=== PATIENT | female | born 1985 | race Caucasian/White ===

== ENCOUNTER 2022-07-29 19:58 | Emergency (ER) | payer BC ==
[~2022-07-29] VITALS: Ht 170.2 cm; Wt 81.6 kg
[2022-07-29 20:38] VITALS: BP 132/84
[2022-07-29] MEDS ORDERED: KETOROLAC TROMETHAMINE INJ 30 MG/ML VIAL ONE (21:20)
[2022-07-29] MEDS ORDERED: CYCLOBENZAPRINE 10 MG TABLET ONE (21:20)
[2022-07-29] MEDS ORDERED: KETOROLAC TROMETHAMINE INJ 60 MG/2 ML VIAL IM ONE (21:30)
[2022-07-29] MEDS ORDERED: CYCLOBENZAPRINE 10 MG TABLET PO ONE (21:30)
[2022-07-29] MEDS ORDERED: CYCL5TAB PO (21:38)
[2022-07-29] MEDS ORDERED: NAPR-1164 PO (21:38)
[2022-07-29] MEDS ORDERED: LIDO30AD10 TP (21:38)
== END 2022-07-29 21:55 | disposition home or self-care (01) ==
LOC: ER 20:03
DX: S33.5XXA Sprain of ligaments of lumbar spine, initial encounter (principal); X50.0XXA Overexertion from strenuous movement or load, initial encounter; Y93.89 Activity, other specified; Y92.89 Other specified places as the place of occurrence of the external cause; Y99.8 Other external cause status
CPT/HCPCS: 99283; 96372; J1885